=== PATIENT | female | born 2000 | race Caucasian/White ===

== ENCOUNTER 2021-05-07 09:27 | Emergency (ER) | payer OTHER ==
[2021-05-07] MEDS ORDERED: Ketorolac Tromethamine 30 MG/ML VIAL ONE (10:27)
[2021-05-07] MEDS ORDERED: Boostrix 0.5 ML (Tdap) VIAL ONE (10:28)
== END 2021-05-07 11:30 | disposition home or self-care (01) ==
LOC: CSHERS 09:27
DX: S39.012A Strain of muscle, fascia and tendon of lower back, initial encounter (principal); S80.12XA Contusion of left lower leg, initial encounter; S20.213A Contusion of bilateral front wall of thorax, initial encounter; V43.62XA Car passenger injured in collision with other type car in traffic accident, initial encounter
CPT/HCPCS: 71110; 90471; 90715; 96372; J1885